=== PATIENT | male | born 1940 | race Caucasian/White ===

== ENCOUNTER 2019-10-09 08:29 | Outpatient (RCR) | payer OTHER | END 2019-10-10 | LOC: PT 08:29 | PROVIDERS: ATTEND Specialist | DX: M17.0 Bilateral primary osteoarthritis of knee (principal); M62.81 Muscle weakness (generalized) | CPT/HCPCS: 97139 ==

== ENCOUNTER 2021-03-02 14:50 | Outpatient (RCR) | payer MEDICARE | END 2021-03-10 | LOC: PT 14:50 | PROVIDERS: ATTEND Specialist | DX: M17.0 Bilateral primary osteoarthritis of knee (principal) ==

== ENCOUNTER 2021-03-28 15:00 | Outpatient (RCR) | payer MEDICARE | END 2021-04-10 | LOC: PT 15:00 | PROVIDERS: ATTEND Specialist | DX: M17.0 Bilateral primary osteoarthritis of knee (principal) | CPT/HCPCS: 97139 ==